=== PATIENT | female | born 1995 | race Caucasian/White ===

== ENCOUNTER 2021-06-14 14:07 | Emergency (ER) | payer OTHER, SELFPAY ==
[2021-06-14 14:45] VITALS: BP 121/84; PULSE 86; RESP 16; TEMP 36.5; O2SAT 98
--- NOTE | 2021-06-14 15:24 | ED.SKABFB ---
HPI - Skin/Abscess/Foreign Bdy General Chief complaint: Skin/Abscess/Foreign Body Stated complaint: poison vanita Source: patient and RN notes reviewed Limitations: no limitations History of Present Illness HPI narrative: The obese patient, previously mostly healthy, presents with skin eruption. Patient states she was gardening least a half a week ago developed a pink, raised rash on her face, and hairline. Symptoms are mild, worse with scratching or showering, and unrelieved with antihistamines. Related Data Home Medications Medication Instructions Recorded Confirmed fluoxetine mg 06/14/21 lorazepam 06/14/21 Allergies Allergy/AdvReac Type Severity Reaction Status Date / Time poison vanita extract Allergy Rash Verified 06/14/21 14:45 Review of Systems Review of Systems: General/Constitutional: No weight loss,fever Eyes: N0: Redness,discharge Ears/Nose/Throat: No: Epistaxis,ear discharge Respiratory: Denies: Hemoptysis Gastrointestinal: No Vomiting, Bleeding-rectal Skin: No Lumps, REPORTS eruption Neurologic: No Focal Weakness,Sz Hematologic: Denies: Petechiae/Purpura Psychiatric: No: Suicida ideationl All Other Systems: Reviewed and Negative PMFSH Comments At time of signature, agree with nursing past medical, surgical, social and family history. There is no relevant family history pertinent to the presenting complaint Exam Narrative: General Appearance: Well nourished/overweight, cooperative Head: Normocephalic Eye: PERRLA, Conjunctiva clear Ear: External ear normal Nose: Normal nose, Nare clear Mouth/Throat: Normal appearing Neck Exam: Supple Respiratory: Airway patent, No respiratory distress Musculoskeletal: Moves all extremities, Non tender Spine/Back: Normal ROM Skin: Warm, Dry ; Neurological: A&O x3 Psychiatric: Normal mood, Normal affect Course Vital Signs Vital signs: Vital Signs Temperature 97.7 F 06/14/21 14:45 Pulse Rate 86 06/14/21 14:45 Respiratory Rate 16 06/14/21 14:45 Blood Pressure 121/84 06/14/21 14:45 Pulse Oximetry 98 06/14/21 14:45 Temperature 97.7 F 06/14/21 14:45 Pulse Rate 86 06/14/21 14:45 Respiratory Rate 16 06/14/21 14:45 Blood Pressure 121/84 06/14/21 14:45 Pulse Oximetry 98 06/14/21 14:45 Discharge Plan Discharge Clinical Impression: Contact dermatitis Qualifiers: Contact dermatitis type: unspecified Contact dermatitis trigger: non-food plants Qualified Code(s): L25.5 - Unspecified contact dermatitis due to plants, except food Patient Disposition: Home, Self-Care Condition: Stable Instructions: Contact Dermatitis (ED) Additional Instructions: You may try OTC preparations like antihistamines, creams Prescriptions: New methylprednisolone [Medrol (Jose Juan)] 4 mg tablets,dose pack See Rx Instructions .ROUTE .COMPLEX Qty: 21 RF: 0 loratadine [Claritin] 10 mg tablet 10 mg PO DAILY Qty: 20 RF: 0 No Action fluoxetine 40 mg capsule RF: 0 lorazepam 1 mg tablet RF: 0 Follow-up/Referrals: PHYSICIAN NOT ON STAFF,NONSTAFF [Primary Care Provider] -
== END 2021-06-14 15:30 | disposition home or self-care (01) ==
PROVIDERS: Emergency Provider Emergency Medicine
DX: L25.5 Unspecified contact dermatitis due to plants, except food (principal)
CPT/HCPCS: 99213; G0463